=== PATIENT | female | born 1960 | race Caucasian/White ===

== ENCOUNTER → 2017-12-22 | Outpatient (CLI) | payer OTHER ==
[~2017-12-22] MED LIST: ASC500 PO; ASCO-182 PO; CALC-797 PO; CALC-852 PO; DOC100 PO; FLUT16SP19 NS; GLUC100026 PO; IBU200 PO; MELO-205 PO; MULT-1335 PO; MULT-865 PO; OMEG-26 PO; OMEG1CAP74 PO; PER PO; VALA100062 PO; VITA-192 PO; VITA-200 PO; ZOST19404 SQ
--- NOTE | 2017-12-23 10:10 | RADIOLOGY IMAGING REPORT ---
[place] [facility] [place]IENT NAME: CHRISTIANO HOYT : [id number] MR: [id number] V: [id number] EXAM DATE: [id number] ORDERING PHYSICIAN: MENA ARORA TECHNOLOGIST: Arielle Broussard PROCEDURE:BILATERAL DIGITAL SCREENING MAMMOGRAM WITH CAD ASSISTED INTERPRETATION & 3D TOMOSYNTHESIS COMPARISON:Prior mammograms 12/19/16, 12/19/15, 12/13/14, 12/07/13, 06/03/13. INDICATIONS:SCREENING FINDINGS: Moderately dense heterogeneous fibroglandular tissue is seen throughout the breasts. The parenchymal pattern has remained stable allowing for difference in mammographic technique & patient positioning. There is no evidence of malignant appearing mass, malignant appearing calcifications or other secondary sign of malignancy in either breast. DIAGNOSTIC CATEGORY 1--NEGATIVE. RECOMMENDATIONS: ROUTINE MAMMOGRAM AND CLINICAL EVALUATION. IMPRESSION: BIRADS 1: Negative. No significant abnormality is seen. Dictated by: Lizeth Pierre M.D. on 12/22/2017 at 17:41 Transcribed by: JACOBO on 12/23/2017 at 7:53 Approved by: Lizeth Pierre M.D. on 12/23/2017 at 10:08 [facility]
== END ==
LOC: MAMO 03:09
PROVIDERS: ATTEND Emergency Medicine
DX: Z12.31 Encounter for screening mammogram for malignant neoplasm of breast (principal); Z80.3 Family history of malignant neoplasm of breast
CPT/HCPCS: 77063; 77067

== ENCOUNTER → 2017-12-24 | Outpatient (CLI) | payer OTHER ==
--- NOTE | 2017-12-24 13:45 | EKG ---
FACILITY: [facility] PATIENT NAME: CHRISTIANO HOYT : [id number] MR: [id number] V: [id number] EXAM DATE: ORDERING PHYSICIAN: ELIF SAUCEDA TECHNOLOGIST: ERIC Test Reason : TACHYCARDIA Blood Pressure : / mmHG Vent. Rate : 059 BPM Atrial Rate : 059 BPM P-R Int : 158 ms QRS Dur : 080 ms QT Int : 440 ms P-R-T Axes : 067 037 057 degrees QTc Int : 435 ms Sinus bradycardia Otherwise normal ECG When compared with ECG of 05-AUG-2016 13:16, No significant change was found Confirmed by ELIF SAUCEDA ([id number]) on 12/24/2017 2:07:41 PM Referred By: IRAIS Confirmed By:ELIF SAUCEDA
== END ==
LOC: RESP 13:26
PROVIDERS: ATTEND Internal Medicine
DX: Z02.9 Encounter for administrative examinations, unspecified (principal)

== ENCOUNTER → 2018-01-06 | Outpatient (CLI) | payer OTHER | LOC: US 01:20 | PROVIDERS: ATTEND Internal Medicine | DX: I47.1 Supraventricular tachycardia (principal) | CPT/HCPCS: 93306 ==

== ENCOUNTER → 2018-04-30 | Outpatient (CLI) | payer OTHER ==
--- NOTE | 2018-05-04 11:22 | RT STRESS TEST REPORT ---
[facility] PATIENT NAME: CHRISTIANO HOYT : [id number] MR: [id number] V: [id number] EXAM DATE: ORDERING PHYSICIAN: SALOMON SNYDER TECHNOLOGIST: Bri Acquisition Time: 2018-04-30 15:04:54 Total Exercise Time: 00:11:01 Test Indications: Palpitations Medications: NONE Protocol: СЕРГЕЙ 2 Max HR: 169 BPM 103% of Pred: 164 BPM Max BP: 164/067 mmHG Max Work Load: 13.4 METS Confirmed by DANIELLE HILL ([id number]) on 05/04/2018 11:21:37 AM Referred By: Overread By: DANIELLE HILL
== END ==
LOC: RESP 07:31
PROVIDERS: ATTEND Internal Medicine Cardiovascular Disease
DX: R00.2 Palpitations (principal)
CPT/HCPCS: 93017

== ENCOUNTER → 2018-06-23 | Outpatient (CLI) | payer OTHER ==
[~2018-06-23] MED LIST changes: +GADOBENATE 529MG/1ML 15ML VIAL IVP ONE
--- NOTE | 2018-06-23 14:18 | RADIOLOGY IMAGING REPORT ---
FACILITY: [facility] - [place] PATIENT NAME: Amrita Groves : 1960 MR: [id number] V: [id number] EXAM DATE: ORDERING PHYSICIAN: ELIF SAUCEDA TECHNOLOGIST: Location: [facility] - [place] Patient: Amrita Groves : 1960 Visit/Account:[id number] Date of Sevice: 06/23/2018 EXAMINATION: MRI Brain without intravenous contrast MRI Brain with intravenous contrast, detailed IACs HISTORY: Numbness and tingling in the left side of the face. COMPARISON: None available. TECHNIQUE: Multi-planar, multi-sequence brain MRI was performed before and after IV gadolinium. Thin section imaging was performed in the axial and coronal planes centered on the IACs. CONTRAST: 10 mL of IV MultiHance FINDINGS: IAC detailed study: Brain stem: Negative. Cerebellopontine angles: Negative. IACs / CN VII and VIII: The left superior cerebellar artery contacts the lateral aspect of the cister nal segment of the left trigeminal nerve. Otherwise negative. Inner ear: Negative. Middle ear: Negative. Mastoids / petrous apices: Mild bilateral mastoid effusion. Rest of brain: A few small FLAIR hyperintensities in the bilateral deep white matter. Rightward nasal septal deviation. IMPRESSION: 1. The left superior cerebellar artery contacts the lateral aspect of the cisternal segment of the le ft trigeminal nerve. 2. Mild chronic white matter disease is nonspecific but most likely represents chronic microvascular ischemia. 3. Rightward nasal septal deviation. 4. Otherwise normal IAC protocol MRI without and with IV contrast. Report Dictated By: Abel Ny MD at 06/23/2018 2:09 PM Report E-Signed By: bAel Ny MD at 06/23/2018 2:14 PM WSN:[id number]
--- NOTE | 2018-06-23 15:59 | RADIOLOGY IMAGING REPORT ---
FACILITY: [facility] PATIENT NAME: Amrita Groves : 1960 MR: [id number] V: [id number] EXAM DATE: ORDERING PHYSICIAN: ELIF SAUCEDA TECHNOLOGIST: [place] [facility] [place]: Amrita Groves : 1960 Visit/Account:[id number] Date of Sevice: 06/23/2018 EXAMINATION: MRI Brain without intravenous contrast MRI Brain with intravenous contrast HISTORY: Numbness and tingling in the left side of the face. COMPARISON: None available. TECHNIQUE: Multi-planar, multi-sequence brain MRI was performed before and after IV gadolinium. CONTRAST: 10 mL of IV MultiHance FINDINGS: Brain volume: Normal. Sagittal midline structures: Negative. Ventricles: Negative. Acute ischemic changes: None. Hemorrhage: None. Masses / edema: None. Enhancement: Negative. Boyd-white: Negative. White matter: A few T2/FLAIR hyperintensities in the deep white matter bilaterally. Vessels: Negative. Extra-axial: Negative. Calvarium / scalp: Negative. Skull base: Negative. Visualized sinuses / orbits: Rightward nasal septal deviation. Visualized upper neck: Negative. IMPRESSION: 1. No acute intracranial abnormality or mass. 2. Mild chronic white matter disease is nonspecific but most likely represents chronic microvascular ischemia. Report Dictated By: Abel Ny MD at 06/23/2018 3:51 PM Report E-Signed By: Abel Ny MD at 06/23/2018 3:54 PM WSN:[id number]
== END ==
LOC: MRI 01:21
PROVIDERS: ATTEND Internal Medicine
DX: J34.2 Deviated nasal septum (principal); R90.82 White matter disease, unspecified
CPT/HCPCS: 70553; A9577